=== PATIENT | female | born 1975 | race Two or more races ===

== ENCOUNTER 2018-01-31 16:48 | Emergency (ER) | payer OTHER ==
[~2018-01-31] VITALS: Ht 157.5 cm; Wt 104.3 kg
[2018-01-31 17:14] VITALS: BP 183/100
[2018-01-31] MEDS ORDERED: BACITRACIN TOP OINT 1 UD PKG TOP ONE (17:45)
[2018-01-31] MEDS ORDERED: IBUPROFEN 800 MG TAB PO ONE (18:00)
== END 2018-01-31 18:12 | disposition home or self-care (01) ==
LOC: ER 16:48
DX: S61.201A Unspecified open wound of left index finger without damage to nail, initial encounter (principal); I10 Essential (primary) hypertension; W26.0XXA Contact with knife, initial encounter; Y93.89 Activity, other specified; Y99.8 Other external cause status; Y92.89 Other specified places as the place of occurrence of the external cause

== ENCOUNTER 2022-01-05 10:09 | Inpatient (IN) | payer OTHER ==
[~2022-01-05] VITALS: Ht 154.9 cm; Wt 96.5 kg
[2022-01-05] MEDS ORDERED: cloNIDine HCL 0.1 MG TAB ONE (10:23)
[2022-01-05] MEDS ORDERED: cloNIDine HCL 0.1 MG TAB PO ONE (10:30)
[2022-01-05 10:51] LABS: Urine WBC None Seen /hpf (0 - 5)
[2022-01-05 11:02] LABS: Urine Bacteria NONE SEEN /hpf (None Seen); Urine Blood 1+ /uL (Negative); Urine Specific Gravity 1.002 (1.001-1.035)
[2022-01-05] MEDS ORDERED: amLODIPine BESYLATE 5 MG TAB PO ONE (11:15)
[2022-01-05 11:32] LABS: Basophils # (auto) 0.1 10 ^3/uL (0-0.2); Basophils % (auto) 1.3 % (0.0-2.0); Eosinophils # (auto) 0 10 ^3/uL (0-0.8); Lymphocytes # (auto) 1.8 10 ^3/uL (0.4-5.4); Monocytes # (auto) 0.3 10 ^3/uL (0-1.3); Nucleated Red Blood Cells % 0.1 %
[2022-01-05 11:34] LABS: Eosinophils % (auto) 0.7 % (0.0-7.0); Hematocrit 24.2 % (36.0-46.0); Lymphocytes % (auto) 37.6 % (10.0-50.0); Mean Corpuscular Hemoglobin 15.4 pg (28.0-32.0); Mean Corpuscular Hgb Conc. 28.1 g/dL (32.0-36.0); Mean Corpuscular Volume 54.8 fL (80.0-100.0); Monocytes % (auto) 6.2 % (0.0-12.0); Neutrophils # (auto) 2.6 10 ^3/uL (1.6-8.6); Neutrophils % (auto) 54.2 % (37.0-80.0); Red Blood Cells 4.42 10^6/uL (4.0-5.20); White Blood Cell 4.8 10^3/uL (4.4-10.8)
[2022-01-05 11:38] LABS: Hemoglobin 6.8 g/dL (12.2-16.2); Red Cell Distribution Width 20.3 % (11.8-14.3)
[2022-01-05 11:46] LABS: Albumin 3.7 g/dL (3.4-5.0); BUN/Creatinine Ratio 17.7; Potassium 3.8 mmol/L (3.5-5.1)
[2022-01-05 11:49] LABS: Bilirubin, Total 0.3 mg/dL (0.2-1.0); Total Protein 7.3 g/dL (6.4-8.2)
[2022-01-05] MEDS ORDERED: ONDANSETRON HCL 4 MG/2 ML VIAL IV PRN (16:30)
[2022-01-05] MEDS ORDERED: HYDROcodone-ACET 5/325MG TAB PO PRN (16:30)
[2022-01-05] MEDS ORDERED: MORPHINE SULFATE INJ 2 MG/ml SYRG IV PRN ×2 (16:30)
[2022-01-05] MEDS ORDERED: diphenhdrAMINE HCL 25 MG CAP PO PRN (16:30)
[2022-01-05] MEDS ORDERED: NITROGLYCERIN 0.4 MG SL TAB SL PRN (16:30)
[2022-01-05] MEDS ORDERED: ACETAMINOPHEN 500 MG TAB PO ONE (16:30)
[2022-01-05] MEDS ORDERED: LORazepam 0.5 MG TAB PO PRN (16:30)
[2022-01-05 16:55] LABS: Thyroid Stimulating Hormone 1.2 uIU/mL (0.358-3.74)
[2022-01-06] VITALS (9 sets, daily range): BP systolic 134–167; BP diastolic 47–73
[2022-01-06] MEDS: ACETAMINOPHEN 325 MG TAB PO PRN ×2 (02:48→17:02)
[2022-01-06] MEDS: SODIUM CHLORIDE 0.9% 1,000 ML IV SCH ×3 (05:02→20:51)
[2022-01-06 05:49] LABS: Basophils # (auto) 0.1 10 ^3/uL (0-0.2); Eosinophils % (auto) 0.7 % (0.0-7.0); White Blood Cell 7.3 10^3/uL (4.4-10.8)
[2022-01-06 05:52] LABS: Eosinophils # (auto) 0.1 10 ^3/uL (0-0.8); Lymphocytes # (auto) 2.1 10 ^3/uL (0.4-5.4); Lymphocytes % (auto) 29.4 % (10.0-50.0); Mean Corpuscular Hgb Conc. 28.9 g/dL (32.0-36.0); Mean Corpuscular Volume 55.5 fL (80.0-100.0); Monocytes # (auto) 0.6 10 ^3/uL (0-1.3); Monocytes % (auto) 8.4 % (0.0-12.0); Neutrophils # (auto) 4.4 10 ^3/uL (1.6-8.6); Neutrophils % (auto) 60.5 % (37.0-80.0); Red Blood Cells 4.14 10^6/uL (4.0-5.20)
[2022-01-06 06:10] LABS: Red Cell Distribution Width 20.4 % (11.8-14.3)
[2022-01-06 06:11] LABS: Hemoglobin 6.6 g/dL (12.2-16.2)
[2022-01-06] MEDS: LISINOPRIL 10 MG TAB PO SCH ×2 (10:00→17:02)
[2022-01-06 15:34] LABS: Hematocrit 26.6 % (36.0-46.0); Hemoglobin 8.1 g/dL (12.2-16.2)
[2022-01-06] MEDS ORDERED: hydrALAZINE HCL 25 MG TAB PO PRN (18:15)
[2022-01-06] MEDS ORDERED: cloNIDine HCL 0.1 MG TAB PO PRN (18:15)
[2022-01-07 05:00] VITALS: BP 135/79
[2022-01-07 06:41] LABS: Basophils # (auto) 0.1 10 ^3/uL (0-0.2); Eosinophils # (auto) 0.1 10 ^3/uL (0-0.8); Hematocrit 26.1 % (36.0-46.0); Hemoglobin 7.8 g/dL (12.2-16.2); Mean Corpuscular Volume 58.3 fL (80.0-100.0); Monocytes # (auto) 0.4 10 ^3/uL (0-1.3); Red Blood Cells 4.48 10^6/uL (4.0-5.20)
[2022-01-07 06:43] LABS: Basophils % (auto) 1.2 % (0.0-2.0); Eosinophils % (auto) 1.6 % (0.0-7.0); Lymphocytes # (auto) 1.6 10 ^3/uL (0.4-5.4); Lymphocytes % (auto) 32.1 % (10.0-50.0); Mean Corpuscular Hemoglobin 17.4 pg (28.0-32.0); Mean Corpuscular Hgb Conc. 29.8 g/dL (32.0-36.0); Monocytes % (auto) 7.1 % (0.0-12.0); White Blood Cell 5.1 10^3/uL (4.4-10.8)
[2022-01-07 06:49] LABS: Red Cell Distribution Width 22.9 % (11.8-14.3)
[2022-01-07 06:58] LABS: INR 1.01 (0.9-1.15); Partial Thromboplastin Time 26.1 sec (24.6-33.4)
[2022-01-07] MEDS ORDERED: SODIUM FERR GLUC 62.5MG/5ML 125 MG in SODIUM CHL 0.9% 100 ML IV ONE (07:00)
[2022-01-07] MEDS: ACETAMINOPHEN 325 MG TAB PO PRN (08:50)
[2022-01-07 09:00] VITALS: BP 157/81
[2022-01-07] MEDS: LISINOPRIL 10 MG TAB PO SCH (11:03)
[2022-01-07 13:00] VITALS: BP 154/78
[2022-01-07 17:11] VITALS: BP 163/84
[2022-01-07] MEDS: medroxyPROGESTERone ACETATE 5 MG TAB PO SCH (21:34)
[2022-01-07 22:00] VITALS: BP 165/67
[2022-01-08 05:00] VITALS: BP 125/63
[2022-01-08 06:16] LABS: Basophils # (auto) 0.1 10 ^3/uL (0-0.2); Eosinophils # (auto) 0.1 10 ^3/uL (0-0.8); Hemoglobin 7.5 g/dL (12.2-16.2); Monocytes # (auto) 0.4 10 ^3/uL (0-1.3)
[2022-01-08 06:18] LABS: Basophils % (auto) 1.2 % (0.0-2.0); Eosinophils % (auto) 1.5 % (0.0-7.0); Lymphocytes # (auto) 2.1 10 ^3/uL (0.4-5.4); Lymphocytes % (auto) 32.3 % (10.0-50.0); Mean Corpuscular Hemoglobin 17.5 pg (28.0-32.0); Mean Corpuscular Volume 58.2 fL (80.0-100.0); Monocytes % (auto) 6.4 % (0.0-12.0); Neutrophils # (auto) 3.9 10 ^3/uL (1.6-8.6); Neutrophils % (auto) 58.6 % (37.0-80.0); White Blood Cell 6.6 10^3/uL (4.4-10.8)
[2022-01-08 06:19] LABS: Red Cell Distribution Width 23.6 % (11.8-14.3)
[2022-01-08] MEDS: medroxyPROGESTERone ACETATE 5 MG TAB PO SCH ×3 (06:24→16:01)
[2022-01-08 09:00] VITALS: BP 133/76
[2022-01-08 09:28] LABS: Folate (Folic Acid) 12.76 ng/mL (5.38-24)
[2022-01-08] MEDS ORDERED: SODIUM FERR GLUC 62.5MG/5ML 125 MG in SODIUM CHL 0.9% 100 ML IV ONE (10:30)
[2022-01-08 13:00] VITALS: BP 139/70
== END 2022-01-08 16:45 | disposition home or self-care (01) | DRG 305 ==
LOC: ER 10:09 → TELE 16:25 → CENTRAL 01-06 12:49 → UNDOADMIN 01-06 14:42 → TELE 01-06 14:42 → TELE-CENTR 01-06 15:26 → TELE 01-06 15:26 → CENTRAL 01-07 10:53
PROVIDERS: ADMIT Internal Medicine; ATTEND Internal Medicine
PROC: 30233N1 Transfusion of Nonautologous Red Blood Cells into Peripheral Vein, Percutaneous Approach (ICD-10-PCS; principal; 2022-01-06)
DX: I16.1 Hypertensive emergency (principal); Z68.41 Body mass index [BMI] 40.0-44.9, adult; R51.9 Headache, unspecified; N92.0 Excessive and frequent menstruation with regular cycle; E66.9 Obesity, unspecified; Z20.822 Contact with and (suspected) exposure to COVID-19; D50.9 Iron deficiency anemia, unspecified; Z98.51 Tubal ligation status; Z91.14 Patient's other noncompliance with medication regimen
CPT/HCPCS: 36415; 70450; 76830; 76856; 80053; 81001; 82306; 82607; 82746; 83036; 83540; 83550; 83615; 84443; 84484; 85014; 85018; 85025; 85045; 85610; 85730; 86850; 86900; 86901; 86920; 93005; 99291; G0378

== ENCOUNTER 2025-02-16 06:15 | Inpatient (IN) | payer OTHER ==
[~2025-02-16] VITALS: Ht 154.9 cm; Wt 96.9 kg
[2025-02-16] VITALS (10 sets, daily range): BP systolic 100–153; BP diastolic 49–153; PULSE 61–83; RESP 12–22; TEMP 97.5–98.6; O2SAT 99–100
--- NOTE | 2025-02-16 06:55 | ED.PDOC ---
History of Present Illness HPI Comments A 49-YEAR-OLD FEMALE WITH A HISTORY OF HYPERTENSION, PRESENTS TO THE ED WITH A C/C OF A HIGH BLOOD PRESSURE EXACERBATION WITH AN ASSOCIATED PRESSURE HEADACHE, AND LIGHTHEADEDNESS. PATIENT STATES THAT HER SYMPTOMS STARTED LAST NIGHT, AND NOTES THAT HER BLOOD PRESSURE WAS 178 SYSTOLIC. PATIENT ALSO NOTES THAT SHE HAS BEEN COMPLIANT WITH HER PRESCRIBED 20 MG DAILY LISINOPRIL MEDICATION FOR THE PAST 3 MONTHS. PATIENT WAS NOTED TO HAVE AN ELEVATED BLOOD PRESSURE OF 188/98 UPON TRIAGE ASSESSMENT. ALL VITAL SIGNS WERE NOTED TO BE STABLE WRIST WAS WEARING RATE WAS EVEN AND UNLABORED ON ROOM AIR, PATIENT IS ALERT, A&O X4 WITH NORMAL GAIT. PT DENIES SOB, CHEST PAIN, NAUSEA, VOMITING AND OTHER COMPLAINTS. NO OTHER ASSOCIATED SYMPTOMS MODIFIERS AT THIS TIME. 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: Denies all BORDERER Hx Family History Family History: Reviewed,noncontributory to illness, Unknown Social History Smoker: Non-Smoker Alcohol: Occasionally Drugs: Denies Drug Use Lives In: Home Constitutional: denies: chills, diaphoresis, fatigue, fever, malaise, sweats, weakness, others EENTM: denies: blurred vision, double vision, ear bleeding, ear discharge, ear drainage, ear pain, ear ringing, eye pain, eye redness, hearing loss, mouth pain, mouth swelling, nasal discharge, nose bleeding, nose congestion, nose pain, photophobia, tearing, throat pain, throat swelling, voice changes, others Respiratory: denies: cough, hemoptysis, orthopnea, SOB at rest, shortness of breath, SOB with excertion, stridor, wheezing, others Cardiovascular: reports: others (HYPERTENSION); denies: chest pain, dizzy spells, diaphoresis, Dyspnea on exertion, edema, irregular heart beat, left arm pain, lightheadedness, palpitations, PND, syncope Gastrointestinal: denies: abdomen distended, abdominal pain, blood streaked bowels, constipated, diarrhea, dysphagia, difficulty swallowing, hematemesis, melena, nausea, poor appetite, poor fluid intake, rectal bleeding, rectal pain, vomiting, others Genitourinary: denies: abnormal vagina bleeding, burning, dyspareunia, dysuria, flank pain, frequency, hematuria, incontinence, pain, , vagina discharge, urgency, others Neurological: reports: dizziness, headache; denies: fainting, left sided numbness, left sided weakness, numbness, paresthesia, pre-existing deficit, right sided numbness, right sided weakness, seizure, speech problems, tingling, tremors, weakness, others Musculoskeletal: denies: back pain, gout, joint pain, joint swelling, muscle pain, muscle stiffness, neck pain, others Integumetry: denies: bruises, change in color, change in hair/nails, dryness, laceration, lesions, lumps, rash, wounds, others Allergic/Immunocompromised: denies: Difficulty Healing, Frequent Infections, Hives, Itching, others Hematologic/Lymphatic: denies: anemia, blood clots, easy bleeding, easy bruising, swollen glands, others Endocrine: denies: excessive hunger, excessive sweating, excessive thirst, excessive urination, flushing, intolerance to cold, intolerance to heat, unexplained weight gain, unexplained weight loss, others Psychiatric: denies: anxiety, bipolar disorder, depression, hopeless, panic d isorder, schizophrenia, sleepless, suicidal, others All Other Systems: Reviewed and Negative Physical Exam General Appearance: No Apparent Distress, Normal, Other (PALE ) HEENT: Normal ENT Inspection, PERRL/EOMI, Pharynx Normal, TMs Normal Neck: Full Range of Motion, Non-Tender, Normal, Normal Inspection Respiratory: Chest Non-Tender, Lungs Clear, No Accessory Muscle Use, No Respiratory Distress, Normal Breath Sounds Cardiovascular: No Edema, No JVD, No Murmur, No Gallop, Normal Peripheral P ulses, Regular Rate/Rhythm Breast Exam: Deferred Gastrointestinal: No Organomegaly, Non Tender, No Pulsatile Mass, Normal Bowel Sounds, Soft Genitalia: Deferred Pelvic: Deferred Rectal: Deferred Extremities: No calf tenderness, Normal capillary refill, Normal inspection, Normal range of motion, Non-tender, No pedal edema Musculoskeletal : Apperance: Normal Neurologic: Alert, 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 Was a procedure done?: No Differential Dx Considerations may include: HIGH BLOOD PRESSURE EXACERBATION, ANEMIA, X-Ray, Labs, Meds, VS Vital Signs Date Time Temp Pulse Resp B/P (MAP) Pulse Ox O2 Delivery O2 Flow Rate FiO2 02/16/25 11:54 98.5 64 12 140/50 98.5 02/16/25 10:00 53 23 149/59 (89) 100 02/16/25 08:34 176/61 02/16/25 08:15 62 17 100 Room Air* 0 21 02/16/25 08:00 97.8 62 17 176/61 (99) 100 97.8 02/16/25 08:00 65 02/16/25 07:26 180/83 02/16/25 07:24 64 18 180/83 (115) 100 02/16/25 06:18 98.4 84 20 188/98 100 98.4 Lab Test 02/16/25 06:40 02/16/25 06:39 Range/Units Urine Color Light-yellow Yellow Urine Clarity Turbid H Clear Urine pH 7.0 5.0-9.0 Urine Specific [place] 1.019 1.001-1.035 Urine Protein Negative Negative Urine Ketones Negative Negative Urine Blood Negative Negative /uL Urine Nitrite Negative Negative Urine Bilirubin Negative Negative Urine Urobilinogen Normal Negative mg/dL Urine Leukocyte Esterase 3+ Negative /uL Urine RBC <1 0 - 4 /hpf Urine Microscopic WBC 1 0-5 /HPF Urine Squamous Epithelial Cells Many <5 /hpf Urine Bacteria Few H None Seen /hpf Urine Mucus Few None Seen Urine Glucose Normal Normal mg/dL Urine Test Negative Negative White Blood Count 5.5 4.4-10.8 10^3/uL Red Blood Count 4.26 4.0-5.20 10^6/uL Hemoglobin 6.9 *L 12.2-16.2 g/dL Hematocrit 23.2 L 36.0-46.0 % Mean Corpuscular Volume 54.5 L 80.0-100.0 fL Mean Corpuscular Hemoglobin 16.1 L 28.0-32.0 pg Mean Corpuscular Hemoglobin Concent 29.6 L 32.0-36.0 g/dL Red Cell Distribution Width 20.6 H 11.8-14.3 % Platelet Count 301 140-450 10^3/uL Mean Platelet Volume 8.6 6.9-10.8 fL Neutrophils (%) (Auto) 62.4 37.0-80.0 % Lymphocytes (%) (Auto) 28.5 10.0-50.0 % Monocytes (%) (Auto) 7.0 0.0-12.0 % Eosinophils (%) (Auto) 0.8 0.0-7.0 % Basophils (%) (Auto) 1.3 0.0-2.0 % Neutrophils # (Auto) 3.5 1.6-8.6 10 ^3/uL Lymphocytes # (Auto) 1.6 0.4-5.4 10 ^3/uL Monocytes # (Auto) 0.4 0-1.3 10 ^3/uL Eosinophils # (Auto) 0 0-0.8 10 ^3/uL Basophils # (Auto) 0.1 0-0.2 10 ^3/uL Nucleated Red Blood Cells 0.1 % Prothrombin Time 10.4 9.3-11.8 sec Prothrombin Time INR 0.98 0.9-1.15 Sodium Level 139 136-145 mmol/L Potassium Level 4.0 3.5-5.1 mmol/L Chloride Level 105 98-107 mmol/L Carbon Dioxide Level 24 20-31 mmol/L Anion Gap 10 5-15 Blood Urea Nitrogen 10 9-23 mg/dL Creatinine 0.71 0.550-1.02 mg/dL Glomerular Filtration Rate Calc 105 >90 mL/min BUN/Creatinine Ratio 14.1 10.0-20.0 Serum Glucose 97 74-106 mg/dL Calcium Level 8.6 L 8.7-10.4 mg/dL Current Medications Medications (Trade) Dose Ordered Sig/Cortez Route Start Time Stop Time Status Last Admin Clonidine HCl (Catapres Tablet) 0.2 mg ONCE ONCE PO 02/16/25 06:45 02/16/25 06:46 DC 02/16/25 07:26 Sodium Chloride 1,000 ml @ 125 mls/hr Q8H ONCE IV 02/16/25 07:30 02/16/25 15:29 02/16/25 08:16 Ceftriaxone Sodium 50 ml @ 100 mls/hr ONCE ONCE IV 02/16/25 08:00 02/16/25 08:29 DC 02/16/25 08:10 PATIENT: ENMA MCGRAW ACCT: [id number] UNIT: [id number] : 1975 LOC: ER ROOM / BED: / AGE / SEX: 49 / F ADM STATUS: REG ER SERVICE 0650 ORDERING PHYSICIAN: FRANCI OCAMPO PROCEDURE(s): HWOCT - HEAD WITHOUT CONTRAST REASON: HEADACHE AND DIZZINESS ORDER NUMBER(s): [id number], ACCESSION NUMBER(s): [id number] EXAM: CT HEAD WITHOUT CONTRAST INDICATION: HEADACHE AND DIZZINESS TECHNIQUE: CT of the head without intravenous contrast. Radiation Dose : 1. Head: CT Dose: CTDI volume is 57.79 mGy. Dose-length product is 926.36 mGy*cm The dose indicators for CT are the volume Computed Tomography (CT) Dose Index (CTDIvol) and the Dose Length Product (DLP), and are measured in units of mGy and mGy-cm, respectively. These indicators are not patient dose, but values generated from the CT scanner acquisition factors. The report includes radiation exposure data for exposures received during this examination. COMPARISON: HEAD WITHOUT CONTRAST on DOS: 01/05/22, HWOCT on DOS: 01/05/22 FINDINGS: There is no evidence of acute intracranial hemorrhage, extra-axial collection, mass effect, midline shift, herniation or hydrocephalus. The ventricles, sulci and cisterns are age appropriate. The june-white differentiation is intact. The visualized paranasal sinuses and mastoid air cells are clear. The surrounding soft tissues and osseous structures are unremarkable. IMPRESSION: 1. No acute intracranial abnormality. PATIENT: ENMA MCGRAW ACCT: [id number] UNIT: [id number] : 1975 LOC: ER ROOM / BED: / AGE / SEX: 49 / F ADM STATUS: REG ER SERVICE 0640 ORDERING PHYSICIAN: FRANCI OCAMPO PROCEDURE(s): CXR1 - CHEST XRAY 1 VIEW REASON: HTN ORDER NUMBER(s): [id number], ACCESSION NUMBER(s): [id number] CHEST RADIOGRAPH Indication: HTN Technique: Single frontal view of the chest was obtained COMPARISON: None FINDINGS: Lines and Tubes: None Lungs: Clear Pleura: No effusion. No pneumothorax. Cardiomediastinal contours: Borderline cardiomegaly. Bones: Unremarkable IMPRESSION: 1. No acute disease. Borderline cardiomegaly. X-Ray, Labs, Meds, VS Comment EXTERNAL MEDICAL RECORDS REVIEWED: [NONE] INDEPENDENT HISTORIANS: [NONE] SOCIAL DETERMINANTS OF HEALTH: [NONE] LABS ORDERED: CBC, BMP, UA, PROTHROMBIN TIME INR, WERE ORDERED AND PENDING: REVIEWED AND INTERPRETED RESULTS: NONE IMAGING ORDERED: CT-HEAD AND CHEST X-RAY ORDERED AND PENDING: TREATMENTS ORDERED: CLONIDINE 0.2 MG, 0.9 NS 125ML/H AND PRBC 2 UNITS, ROCEPHIN 1GM IVPB PROCEDURES PERFORMED: NONE CRITICAL CARE TIME: NONE I HAVE DISCUSSED THE PATIENT WITH THE ATTENDING PHYSICIAN (ADAM) AND HE AGREES WITH THE PATIENT'S PLAN OF CARE AND DISPOSITION. PATIENT PRESENTED TO THE ED WITH A C/C OF LIGHTHEADEDNESS WITH THE ASSOCIATED HEADACHE, PATIENT WAS ORDERED A CBC AND IT WAS REMARKABLE FOR A HEMOGLOBIN LEVEL OF 6.9 AND WAS ADMITTED DUE TO NEEDING A BLOOD TRANSFUSION. ALSO, PT'S BLOOD PRESSURE IS HIGH AND NEED TO FURTHER EVALUATION AND TREATMENT. Time of 1ST Reevaluation: 08:00 Reevaluation 1ST: Unchanged Patient Education/Counseling: Diagnosis, Treatment, Need For Follow Up Family Education/Counseling: No Family Present SEPSIS Sepsis Screen Date sepsis recognized/suspect: Feb 16, 2025 Time Sepsis recognized/suspect: 622 Recent Procedure: No On Antibiotic Therapy: No Respiratory Rate >20: No Heart Rate >90: No Temp<36 C (96.8 F) or >38.3 C: No SBP <90 or MAP <65 mmHG: No New Acute Mental Status Change: No Is the patient on CPAP, BIPAP,: No Physician Orders Chest Xray 1 View (02/16/25 06:40) Head Without Contrast (02/16/25 06:50) Type And Screen (02/16/25 07:21) Heplock Iv (02/16/25 ) Sodium Chloride 0.9% (02/16/25 07:30) Urine Bacterial Culture (02/16/25 07:49) Vital Signs Date Time Temp Pulse Resp B/P (MAP) Pulse Ox O2 Delivery O2 Flow Rate FiO2 02/16/25 11:54 98.5 64 12 140/50 98.5 02/16/25 10:00 53 23 149/59 (89) 100 02/16/25 08:34 176/61 02/16/25 08:15 62 17 100 Room Air* 0 21 02/16/25 08:00 97.8 62 17 176/61 (99) 100 97.8 02/16/25 08:00 65 02/16/25 07:26 180/83 02/16/25 07:24 64 18 180/83 (115) 100 02/16/25 06:18 98.4 84 20 188/98 100 98.4 Laboratory Tests Test 02/16/25 06:39 White Blood Count 5.5 10^3/uL (4.4-10.8) Medications Medications Dose Ordered Sig/Cortez Route Start Time Stop Time Status Last Admin Dose Admin Ceftriaxone Sodium 50 ml @ 100 mls/hr ONCE ONCE IV 02/16/25 08:00 02/16/25 08:29 DC 02/16/25 08:10 Clonidine HCl 0.2 mg ONCE ONCE PO 02/16/25 06:45 02/16/25 06:46 DC 02/16/25 07:26 Sodium Chloride 1,000 ml @ 125 mls/hr Q8H ONCE IV 02/16/25 07:30 02/16/25 15:29 02/16/25 08:16 Departure 1 Departure Time of Disposition: 08:00 Impression: Primary Impression: Hypertensive emergency Additional Impressions: Severe anemia Acute cystitis Qualified Codes: N30.00 - Acute cystitis without hematuria Disposition: ADMITTED INPATIENT Condition: Serious e-Prescriptions No Active Prescriptions or Reported Meds Critical Care Note Critical Care Time?: No Stability Stability form required: Yes Unstable for transfer: Requires medication, ED Physician Assesment, Possible rapid decline Heart Score Heart Score: Heart Score Response (Comments) Value History N/A 0 EKG N/A 0 Age N/A 0 Risk Factors N/A 0 Troponin N/A 0 Total 0 I personally scribed for FRANCI OCAMPO ([email or web address]) on 02/16/25 at 06:55. Electronically submitted by Librado Eden ([email or web address]). I personally scribed for FRANCI OCAMPO ([email or web address]) on 02/16/25 at 07:05. Electronically submitted by Librado Eden ([email or web address]). I personally scribed for FRANCI OCAMPO ([email or web address]) on 02/16/25 at 07:51. Electronically submitted by Librado Eden ([email or web address]). I personally scribed for FRANCI OCAMPO ([email or web address]) on 02/16/25 at 12:15. Electronically submitted by Librado Eden ([email or web address]). I personally scribed for FRANCI OCAMPO ([email or web address]) on 02/16/25 at 12:17. Electronically submitted by Librado Eden ([email or web address]). FRANCI OCAMPO Feb 16, 2025 06:55
[2025-02-16 07:15] LABS: Urine Protein, UAD Negative (Negative)
[2025-02-16 07:15] LABS: Mean Corpuscular Volume 54.5 fL (80.0-100.0); Nucleated Red Blood Cells % 0.1 %
[2025-02-16 07:18] LABS: Hematocrit 23.2 % (36.0-46.0); Mean Corpuscular Hemoglobin 16.1 pg (28.0-32.0)
[2025-02-16 07:21] LABS: Chloride 105 mmol/L (98-107); Hemoglobin 6.9 g/dL (12.2-16.2); Potassium 4.0 mmol/L (3.5-5.1); Sodium 139 mmol/L (136-145)
[2025-02-16 07:22] LABS: Anion Gap 10 (5-15); Carbon Dioxide 24 mmol/L (20-31)
[2025-02-16 07:26] LABS: INR 0.98 (0.9-1.15); Prothrombin Time 10.4 sec (9.3-11.8)
[2025-02-16 07:27] LABS: BUN/Creatinine Ratio 14.1 (10.0-20.0); Blood Urea Nitrogen 10 mg/dL (9-23); Glucose 97 mg/dL (74-106)
[2025-02-16 07:29] LABS: Calcium 8.6 mg/dL (8.7-10.4)
--- NOTE | 2025-02-16 07:31 | DVH ---
CHEST RADIOGRAPH Indication: HTN Technique: Single frontal view of the chest was obtained COMPARISON: None FINDINGS: Lines and Tubes: None Lungs: Clear Pleura: No effusion. No pneumothorax. Cardiomediastinal contours: Borderline cardiomegaly. Bones: Unremarkable IMPRESSION: 1. No acute disease. Borderline cardiomegaly.
--- NOTE | 2025-02-16 07:41 | DVH ---
EXAM: CT HEAD WITHOUT CONTRAST INDICATION: HEADACHE AND DIZZINESS TECHNIQUE: CT of the head without intravenous contrast. Radiation Dose : 1. Head: CT Dose: CTDI volume is 57.79 mGy. Dose-length product is 926.36 mGy*cm The dose indicators for CT are the volume Computed Tomography (CT) Dose Index (CTDIvol) and the Dose Length Product (DLP), and are measured in units of mGy and mGy-cm, respectively. These indicators are not patient dose, but values generated from the CT scanner acquisition factors. The report includes radiation exposure data for exposures received during this examination. COMPARISON: HEAD WITHOUT CONTRAST on DOS: 01/05/22, HWOCT on DOS: 01/05/22 FINDINGS: There is no evidence of acute intracranial hemorrhage, extra-axial collection, mass effect, midline s hift, herniation or hydrocephalus. The ventricles, sulci and cisterns are age appropriate. The june-white differentiation is intact. The visualized paranasal sinuses and mastoid air cells are clear. The surrounding soft tissues and osseous structures are unremarkable. IMPRESSION: 1. No acute intracranial abnormality. Radiation optimization: All CT scans at this facility use at least one of these dose optimization tashi hniques: automated exposure control mA and/or kV adjustment per patient size (includes targeted exam s where dose is matched to clinical indication) or iterative reconstruction.
[2025-02-16] MEDS: cefTRIAXone 1GM/50ML D5W 50 ML IV ONE (08:10)
[2025-02-16] MEDS: SODIUM CHLORIDE 0.9% 1,000 ML IV ONE (08:16)
[2025-02-16] MEDS ORDERED: NITROGLYCERIN 0.4 MG SL TAB SL PRN (13:00)
[2025-02-16] MEDS ORDERED: ONDANSETRON HCL 4 MG/2 ML VIAL IV PRN (13:00)
[2025-02-16] MEDS ORDERED: DOCUSATE SOD 100 MG CAP PO PRN (13:00)
[2025-02-16] MEDS ORDERED: MORPHINE SULFATE INJ 2 MG/ml SYRG IV PRN (13:00)
[2025-02-16] MEDS ORDERED: hydrALAZINE HCL 20 MG/ML VL IV PRN (13:00)
[2025-02-16] MEDS ORDERED: ACETAMINOPHEN 325 MG TAB PO PRN (13:00)
[2025-02-16] MEDS: LISINOPRIL 20 MG TAB PO ONE (13:07)
--- NOTE | 2025-02-16 13:08 | DVHHP2 ---
History of Present Illness Reason for Visit: High blood pressure History of Present Illness Kim Esquivel is a 49-year-old female with past medical history of anemia and hypertension, who came to the hospital for high blood pressure. Patient states she was taking Lisinopril 20mg PO daily, but has not been taking it for 3-4 months. Patient was also taking IV iron infusions weekly, but has not been doing those either. She states yesterday she began feeling lightheaded and pressure in her head. She took her blood pressure and it was elevated. She went to sleep last night and woke up feeling the same this morning. Her blood pressure remained elevated, so she decided to come to the hospital. Cardiovascular: HTN Heme/Onc: Anemia NOS Past Surgical History: Tubal Ligation Smoke: No ALCOHOL: none Drugs: None Lives: with Family Domestic Violence: Neg Review of Systems Constitutional: Yes: Malaise; No: Fever, Chills, Sweats, Weakness, Other Eyes: No: Pain, Vision change, Conjunctivae inflammation, Eyelid inflammation, Other, Redness ENT: No: Ear pain, Ear discharge, Nose pain, Nose discharge, Nose congestion, Mouth pain, Mouth swelling, Throat pain, Throat swelling, Other Respiratory: No: Cough, Dry, Shortness of breath, SOB with excertion, Wheezing, Hemoptysis, Pleuritic Pain, Sputum, Wheezing, Other Cardiovascular: Other (High blood pressure); No: Chest Pain, Palpitations, Orthopnea, Paroxysmal Noc. Dyspnea, Edema, Lt Headedness Gastrointestinal: No: Nausea, Vomiting, Abdominal Pain, Diarrhea, Constipation, Melena, Hematochezia, Other Genitourinary: No Dysuria, No Frequency, No Incontinence, No Hematuria, No Retention, No Other Musculoskeletal: No: other, neck pain, shoulder pain, arm pain, back pain, hand pain, leg pain, foot pain Skin: No: Rash, Lesions, Jaundice, Bruising, Other Neurological: No: Weakness, Numbness, Incoordination, Change in speech, Confusion, Seizures, Other Allergies: Coded Allergies: NO KNOWN ALLERGIES (Unverified , 01/31/18) Exam Vital Signs Vital Signs Date Time Temp Pulse Resp B/P (MAP) Pulse Ox O2 Delivery O2 Flow Rate FiO2 02/16/25 11:54 98.5 64 12 140/50 98.5 02/16/25 10:00 100 8/20/25 08:15 Room Air* 0 21 General Appearance: Alert, Oriented X3, Cooperative, mild distress HEENT: Atraumatic, PERRLA, Other (Mucous membr dry) Respiratory: Clear to auscultation, Normal air movement Cardiovascular: Regular rate, Normal S1, Normal S2 Abdominal: Normal bowel sounds, Soft, No tenderness, No hepatospenomegaly Extremities: No clubbing, No cyanosis, No edema, Normal pulses, No tenderness/swelling Skin: No rashes, No breakdown, No significant lesion Neuro: Normal gait, Normal speech, Strength at 5/5 X4 ext, Normal tone Psych/Mental Status: Mental status NL, Mood NL Labs/Xrays Labs Test 02/16/25 06:40 02/16/25 06:39 Range/Units Urine Color Light-yellow Yellow Urine Clarity Turbid H Clear Urine pH 7.0 5.0-9.0 Urine Specific [place] 1.019 1.001-1.035 Urine Protein Negative Negative Urine Ketones Negative Negative Urine Blood Negative Negative /uL Urine Nitrite Negative Negative Urine Bilirubin Negative Negative Urine Urobilinogen Normal Negative mg/dL Urine Leukocyte Esterase 3+ Negative /uL Urine RBC <1 0 - 4 /hpf Urine Microscopic WBC 1 0-5 /HPF Urine Squamous Epithelial Cells Many <5 /hpf Urine Bacteria Few H None Seen /hpf Urine Mucus Few None Seen Urine Glucose Normal Normal mg/dL Urine Test Negative Negative White Blood Count 5.5 4.4-10.8 10^3/uL Red Blood Count 4.26 4.0-5.20 10^6/uL Hemoglobin 6.9 *L 12.2-16.2 g/dL Hematocrit 23.2 L 36.0-46.0 % Mean Corpuscular Volume 54.5 L 80.0-100.0 fL Mean Corpuscular Hemoglobin 16.1 L 28.0-32.0 pg Mean Corpuscular Hemoglobin Concent 29.6 L 32.0-36.0 g/dL Red Cell Distribution Width 20.6 H 11.8-14.3 % Platelet Count 301 140-450 10^3/uL Mean Platelet Volume 8.6 6.9-10.8 fL Neutrophils (%) (Auto) 62.4 37.0-80.0 % Lymphocytes (%) (Auto) 28.5 10.0-50.0 % Monocytes (%) (Auto) 7.0 0.0-12.0 % Eosinophils (%) (Auto) 0.8 0.0-7.0 % Basophils (%) (Auto) 1.3 0.0-2.0 % Neutrophils # (Auto) 3.5 1.6-8.6 10 ^3/uL Lymphocytes # (Auto) 1.6 0.4-5.4 10 ^3/uL Monocytes # (Auto) 0.4 0-1.3 10 ^3/uL Eosinophils # (Auto) 0 0-0.8 10 ^3/uL Basophils # (Auto) 0.1 0-0.2 10 ^3/uL Nucleated Red Blood Cells 0.1 % Prothrombin Time 10.4 9.3-11.8 sec Prothrombin Time INR 0.98 0.9-1.15 Sodium Level 139 136-145 mmol/L Potassium Level 4.0 3.5-5.1 mmol/L Chloride Level 105 98-107 mmol/L Carbon Dioxide Level 24 20-31 mmol/L Anion Gap 10 5-15 Blood Urea Nitrogen 10 9-23 mg/dL Creatinine 0.71 0.550-1.02 mg/dL Glomerular Filtration Rate Calc 105 >90 mL/min BUN/Creatinine Ratio 14.1 10.0-20.0 Serum Glucose 97 74-106 mg/dL Calcium Level 8.6 L 8.7-10.4 mg/dL CHEST RADIOGRAPH FINDINGS: Lines and Tubes: None Lungs: Clear Pleura: No effusion. No pneumothorax. Cardiomediastinal contours: Borderline cardiomegaly. Bones: Unremarkable IMPRESSION: 1. No acute disease. Borderline cardiomegaly. EXAM: CT HEAD WITHOUT CONTRAST FINDINGS: There is no evidence of acute intracranial hemorrhage, extra-axial collection, mass effect, midline shift, herniation or hydrocephalus. The ventricles, sulci and cisterns are age appropriate. The ujne-white differentiation is intact. The visualized paranasal sinuses and mastoid air cells are clear. The surrounding soft tissues and osseous structures are unremarkable. IMPRESSION: 1. No acute intracranial abnormality. SEPSIS Sepsis Screen Date sepsis recognized/suspect: Feb 16, 2025 Time Sepsis recognized/suspect: 622 Recent Procedure: No On Antibiotic Therapy: No Respiratory Rate >20: No Heart Rate >90: No Temp<36 C (96.8 F) or >38.3 C: No SBP <90 or MAP <65 mmHG: No New Acute Mental Status Change: No Is the patient on CPAP, BIPAP,: No Physician Orders Chest Xray 1 View (02/16/25 06:40) Head Without Contrast (02/16/25 06:50) Type And Screen (02/16/25 07:21) Heplock Iv (02/16/25 ) Sodium Chloride 0.9% (02/16/25 07:30) Urine Bacterial Culture (02/16/25 07:49) Admit (02/16/25 12:46) Code Status (02/16/25 12:46) 2 Gm Sodium Diet (02/16/25 Lunch) Sodium Chloride Lock (Saline Lock Ns) (02/16/25 14:00) Ondansetron Hcl (Zofran) (02/16/25 13:00) Docusate Sodium Capsule (Colace Capsule) (02/16/25 13:00) Complete Blood Count (02/17/25 04:00) Comprehensive Metabolic Panel (02/17/25 04:00) Condition: Serious (02/16/25 12:46) Acetaminophen Tablet (Tylenol Tablet) (02/16/25 13:00) Nitroglycerin Sublingual (Ntrostat Subli (02/16/25 13:00) Morphine Sulfate Injection (02/16/25 13:00) Stat Ekg For Chest Pain (02/16/25 12:46) Notify Md Of Changes From Base (02/16/25 12:46) Founder And President For 24 Hours (02/16/25 12:46) Emergency Dysrhythmia Protocol (02/16/25 12:46) Rhythm Strips Once Every Shift (02/16/25 12:46) Oxygen By Nasal Cannula (02/16/25 12:46) Vital Signs Date Time Temp Pulse Resp B/P (MAP) Pulse Ox O2 Delivery O2 Flow Rate FiO2 02/16/25 11:54 98.5 64 12 140/50 98.5 02/16/25 10:00 53 23 149/59 (89) 100 02/16/25 08:34 176/61 02/16/25 08:15 62 17 100 Room Air* 0 21 02/16/25 08:00 97.8 62 17 176/61 (99) 100 97.8 02/16/25 08:00 65 02/16/25 07:26 180/83 02/16/25 07:24 64 18 180/83 (115) 100 02/16/25 06:18 98.4 84 20 188/98 100 98.4 Laboratory Tests Test 02/16/25 06:39 White Blood Count 5.5 10^3/uL (4.4-10.8) Medications Medications Dose Ordered Sig/Cortez Route Start Time Stop Time Status Last Admin Dose Admin Ceftriaxone Sodium 50 ml @ 100 mls/hr ONCE ONCE IV 02/16/25 08:00 02/16/25 08:29 DC 02/16/25 08:10 100 MLS/HR Clonidine HCl 0.2 mg ONCE ONCE PO 02/16/25 06:45 02/16/25 06:46 DC 02/16/25 07:26 0.2 MG Sodium Chloride 1,000 ml @ 125 mls/hr Q8H ONCE IV 02/16/25 07:30 02/16/25 15:29 02/16/25 08:16 125 MLS/HR Assessment/Plan Assessment/Plan Assessment: Severe anemia, Uncontrolled hypertension, Plan: Admit to Tele, Transfuse 2 units PRBC, Start Lisinopril 20 mg daily, PRN antihypertensives, Manage/Monitor H&H closely, PO iron supplements, Consider IV iron supplements, Plan discussed with: Patient My Orders Orders - ARCELIA GARCIA ALMOND BLANCHER Procedure Category Date Status Time Admit ADMIT 02/16/25 Transmitted 12:46 Code Status CODE 02/16/25 Transmitted 12:46 2 Gm Sodium Diet DIET 02/16/25 Transmitted Lunch Sodium Chloride Lock PHA 02/16/25 Transmitted (Saline Lock Ns) 14:00 Ondansetron Hcl PHA 02/16/25 Transmitted (Zofran) 13:00 Docusate Sodium PHA 02/16/25 Transmitted Capsule (Colace 13:00 Complete Blood Count LAB 02/17/25 Verified 04:00 Comprehensive LAB 02/17/25 Verified Metabolic Panel 04:00 Condition: Serious [place] 02/16/25 Transmitted 12:46 Acetaminophen Tablet PHA 02/16/25 Transmitted (Tylenol Tablet) 13:00 Nitroglycerin PHA 02/16/25 Transmitted Sublingual (Ntrostat 13:00 Morphine Sulfate PHA 02/16/25 Transmitted Injection 13:00 Stat Ekg For Chest [place] 02/16/25 Transmitted Pain 12:46 Notify Md Of Changes [facility] 02/16/25 Transmitted From Base 12:46 Founder And President For AL[place] 02/16/25 Transmitted 24 Hours 12:46 Emergency Dysrhythmia [facility] 02/16/25 Transmitted Protocol 12:46 Rhythm Strips Once [place] 02/16/25 Transmitted Every Shift 12:46 Oxygen By Nasal RT 02/16/25 Transmitted Cannula 12:46 Date of Service: Feb 16, 2025 Billing Provider: ARCELIA GARCIA Common Visit Codes: [id number] INP/OBS CARE (HIGH) ARCELIA GARCIA Feb 16, 2025 13:07
[2025-02-16] MEDS: SODIUM CHLOR 0.9% PF (SALINE LOCK) 10ML VIAL/SYR IV SCH (14:00)
[2025-02-16] MEDS: FERROUS SULFATE 325mg EC TAB PO SCH (18:33)
[2025-02-17] VITALS (8 sets, daily range): BP systolic 113–150; BP diastolic 62–92; PULSE 62–75; RESP 14–19; TEMP 36.9; O2SAT 94–99
[2025-02-17 06:58] LABS: Mean Corpuscular Volume 61.4 fL (80.0-100.0)
[2025-02-17 06:59] LABS: Hematocrit 30.2 % (36.0-46.0); Hemoglobin 9.3 g/dL (12.2-16.2); Mean Corpuscular Hemoglobin 18.8 pg (28.0-32.0); Nucleated Red Blood Cells % 0.0 %
[2025-02-17 07:42] LABS: Alanine Aminotransferase 11 U/L (7-40); Albumin 4.1 g/dL (3.2-4.8); Alkaline Phosphatase 60 U/L (46-116); Anion Gap 9 (5-15); BUN/Creatinine Ratio 13.0 (10.0-20.0); Carbon Dioxide 24 mmol/L (20-31); Chloride 106 mmol/L (98-107); Glucose 93 mg/dL (74-106); Potassium 4.2 mmol/L (3.5-5.1); Sodium 139 mmol/L (136-145); Total Protein 6.8 g/dL (5.7-8.2)
[2025-02-17 07:43] LABS: Bilirubin, Total 0.7 mg/dL (0.2-1.0); Blood Urea Nitrogen 9 mg/dL (9-23); Calcium 8.5 mg/dL (8.7-10.4)
[2025-02-17] MEDS: LISINOPRIL 20 MG TAB PO SCH (09:58)
--- NOTE | 2025-02-17 16:06 | DVHDS2 ---
Discharge Summary Date of Admission Feb 16, 2025 at 12:46 Date of Discharge: Feb 17, 2025 Labs/Diagnostic Data: Laboratory Results Test 02/17/25 05:52 02/16/25 06:40 02/16/25 06:39 White Blood Count 5.7 10^3/uL (4.4-10.8) Red Blood Count 4.92 10^6/uL (4.0-5.20) Hemoglobin 9.3 g/dL (12.2-16.2) Hematocrit 30.2 % (36.0-46.0) Mean Corpuscular Volume 61.4 fL (80.0-100.0) Mean Corpuscular Hemoglobin 18.8 pg (28.0-32.0) Mean Corpuscular Hemoglobin Concent 30.6 g/dL (32.0-36.0) Red Cell Distribution Width 30.1 % (11.8-14.3) Platelet Count 249 10^3/uL (140-450) Mean Platelet Volume 8.7 fL (6.9-10.8) Neutrophils (%) (Auto) 64.7 % (37.0-80.0) Lymphocytes (%) (Auto) 27.1 % (10.0-50.0) Monocytes (%) (Auto) 6.6 % (0.0-12.0) Eosinophils (%) (Auto) 0.8 % (0.0-7.0) Basophils (%) (Auto) 0.8 % (0.0-2.0) Neutrophils # (Auto) 3.7 10 ^3/uL (1.6-8.6) Lymphocytes # (Auto) 1.5 10 ^3/uL (0.4-5.4) Monocytes # (Auto) 0.4 10 ^3/uL (0-1.3) Eosinophils # (Auto) 0 10 ^3/uL (0-0.8) Basophils # (Auto) 0 10 ^3/uL (0-0.2) Nucleated Red Blood Cells 0.0 % Sodium Level 139 mmol/L (136-145) Potassium Level 4.2 mmol/L (3.5-5.1) Chloride Level 106 mmol/L (98-107) Carbon Dioxide Level 24 mmol/L (20-31) Anion Gap 9 (5-15) Blood Urea Nitrogen 9 mg/dL (9-23) Creatinine 0.69 mg/dL (0.550-1.02) Glomerular Filtration Rate Calc 108 mL/min (>90) BUN/Creatinine Ratio 13.0 (10.0-20.0) Serum Glucose 93 mg/dL (74-106) Calcium Level 8.5 mg/dL (8.7-10.4) Total Bilirubin 0.7 mg/dL (0.2-1.0) Aspartate Amino Transferase (AST) 13 U/L (13-40) Alanine Aminotransferase (ALT) 11 U/L (7-40) Alkaline Phosphatase 60 U/L (46-116) Total Protein 6.8 g/dL (5.7-8.2) Albumin 4.1 g/dL (3.2-4.8) Urine Color Light-yellow (Yellow) Urine Clarity Turbid (Clear) Urine pH 7.0 (5.0-9.0) Urine Specific [place] 1.019 (1.001-1.035) Urine Protein Negative (Negative) Urine Ketones Negative (Negative) Urine Blood Negative /uL (Negative) Urine Nitrite Negative (Negative) Urine Bilirubin Negative (Negative) Urine Urobilinogen Normal mg/dL (Negative) Urine Leukocyte Esterase 3+ /uL (Negative) Urine RBC <1 /hpf (0 - 4) Urine Microscopic WBC 1 /HPF (0-5) Urine Squamous Epithelial Cells Many /hpf (<5) Urine Bacteria Few /hpf (None Seen) Urine Mucus Few (None Seen) Urine Glucose Normal mg/dL (Normal) Urine Test Negative (Negative) Prothrombin Time 10.4 sec (9.3-11.8) Prothrombin Time INR 0.98 (0.9-1.15) Other Laboratory Tests 02/17/25 05:52 Brief Hx & Hospital Course: SEE DICTATED NOTE Condition at Discharge: Good Final Diagnosis/Problems List HTN Discharge Disposition: Home Discharge Instruct/Medications Diet: Regular Activity: No Restrictions, As Tolerated Follow Up/Referral: FU WITH PCP IN 1 WK Medications: SCRIPT TO PHARMACY No Active Prescriptions or Reported Meds Discharge Statement: "Patient was advised to return to the ER or call 911 if any headaches, dizziness, shortness of breath, chest pain, abdominal pain, bleeding, fevers, or worsening of medical condition. Patient was counseled about treatment plan, medications, possible side effects, patientverbalized understanding. All questions were answered to the best of my ability. This discharge took greater then 30 minutes in planning, reviewing documentation, counseling the patient, and discussing with other team members." ASSESSMENT ASSESSMENT Assessment HTN Date of Service: Feb 17, 2025 Billing Provider: JOSEP HERBERT MD Common Visit Codes: [id number] DISCH DAY >30min JOSEP HEREBRT MD Feb 17, 2025 16:06
[2025-02-17] MEDS ORDERED: FER325T PO (16:08)
[2025-02-17] MEDS ORDERED: LISI20TA56 PO (16:08)
[2025-02-17] MEDS ORDERED: DOCU-94 PO (16:08)
[2025-02-17] MEDS ORDERED: NITR-87 PO (16:11)
--- NOTE | 2025-02-17 16:33 | DVHDS ---
DATE OF DISCHARGE: 02/17/2025 HISTORY OF PRESENT ILLNESS: The patient is a 49-year-old lady who is admitted with a history of lightheadedness and head pressure and has history of anemia and hypertension. HOSPITAL COURSE: The patient states that she has been noncompliant with her medications. Blood pressure at time of admission was 188/98. The patient had a CT of head that showed no acute abnormality. The patient had a chest x-ray that was also negative. The patient was anemic with a hemoglobin of 6.9 for which she was given 2 units of blood transfusion. Hemoglobin at the time of discharge is 9.3. The patient will now be discharged home to resume her home medications as well as to be on iron sulfate 325 mg p.o. b.i.d., Colace p.r.n. for constipation, Macrobid 100 mg p.o. b.i.d. for 5 days, and lisinopril 20 mg daily. She will follow up with the primary in 1 week. FINAL DIAGNOSES: * Hypertensive urgency. * Anemia status post transfusion with previous history of iron deficiency. * Morbid obesity. * UTI. Time spent in discharge planning and review of plan with the patient and nursing was 38 minutes. MD MARIANNE Ramos/TESSIE TID: [id number] RECEIPT: [id number]
== END 2025-02-17 17:20 | disposition home or self-care (01) | DRG 812 ==
LOC: ER 06:18 → OVERFLOW 12:46 → TELE-EAST 17:13
PROVIDERS: ADMIT Internal Medicine; ATTEND Internal Medicine
PROC: 30233N1 Transfusion of Nonautologous Red Blood Cells into Peripheral Vein, Percutaneous Approach (ICD-10-PCS; principal; 2025-02-16)
DX: D64.9 Anemia, unspecified (principal); I16.1 Hypertensive emergency; N30.00 Acute cystitis without hematuria; Z68.41 Body mass index [BMI] 40.0-44.9, adult; I10 Essential (primary) hypertension; E66.01 Morbid (severe) obesity due to excess calories; Z79.899 Other long term (current) drug therapy; Z91.148 Patient's other noncompliance with medication regimen for other reason
CPT/HCPCS: 36415; 36430; 70450; 71045; 80048; 80053; 81001; 81025; 85025; 85610; 86850; 86900; 86901; 86920; 87086; 96365; G0378